=== PATIENT | female | born 2000 | race African-American/Black ===

== ENCOUNTER 2019-02-05 09:04 | Emergency (ER) | payer SELFPAY ==
[2019-02-05] MEDS ORDERED: Dicyclomine 20 MG TAB ONE (09:25)
[2019-02-05] MEDS ORDERED: Ondansetron ODT 4 MG TAB ONE (09:25)
[2019-02-05 10:23] LABS: Pregnancy Test - Urine (BHCG) Negative (Negative); Pregu Control Background? CLEAR/WHITE (CLR/WHITE); Pregu Control Bar Appear? YES (CONTROL BAR); Specific Gravity 1.024 (1.002-1.036)
== END 2019-02-05 10:22 | disposition home or self-care (01) ==
LOC: SCSER 09:04
DX: K52.9 Noninfective gastroenteritis and colitis, unspecified (principal); R11.2 Nausea with vomiting, unspecified; F31.9 Bipolar disorder, unspecified; F43.10 Post-traumatic stress disorder, unspecified; F17.210 Nicotine dependence, cigarettes, uncomplicated
CPT/HCPCS: 81025; 99284; Q0162

== ENCOUNTER 2019-07-22 19:42 | Emergency (ER) | payer SELFPAY | END 2019-07-22 20:05 | disposition home or self-care (01) | LOC: ERS 19:42 | DX: J34.89 Other specified disorders of nose and nasal sinuses (principal); F31.9 Bipolar disorder, unspecified; F43.10 Post-traumatic stress disorder, unspecified; F17.290 Nicotine dependence, other tobacco product, uncomplicated | CPT/HCPCS: 99283 ==

== ENCOUNTER 2019-07-24 20:02 | Emergency (ER) | payer SELFPAY | END 2019-07-24 20:35 | disposition home or self-care (01) | LOC: ERS 20:02 | DX: J30.9 Allergic rhinitis, unspecified (principal); F31.9 Bipolar disorder, unspecified; F43.10 Post-traumatic stress disorder, unspecified; F17.290 Nicotine dependence, other tobacco product, uncomplicated | CPT/HCPCS: 99283 ==

== ENCOUNTER 2021-12-16 19:22 | Emergency (ER) | payer OTHER, SELFPAY ==
[2021-12-16] MEDS ORDERED: Boostrix 0.5 ML (Tdap) VIAL (>/=7 yrs of age) ONE (20:37)
[2021-12-16] MEDS ORDERED: Amoxicillin/Potassium Clav 875 MG TAB ONE (20:37)
== END 2021-12-16 21:05 | disposition home or self-care (01) ==
LOC: ERS 19:22
DX: S91.312A Laceration without foreign body, left foot, initial encounter (principal); Z23 Encounter for immunization; W25.XXXA Contact with sharp glass, initial encounter
CPT/HCPCS: 90471; 90715